=== PATIENT | male | born 1950 | race Caucasian/White ===

== ENCOUNTER 2021-09-04 04:38 | Inpatient (IN) | payer MEDICARE ==
[~2021-09-04] VITALS: Ht 170.2 cm; Wt 86.2 kg
--- NOTE | 2021-09-04 04:45 | NUR ---
Patient BIB [facility] unit [facility] from [facility] Med-Surg floor on a 5150 hold for GD to be medically cleared to be admitted to MHU.
--- NOTE | 2021-09-04 05:00 | NUR ---
Dr. Bell on bedside for MSE.
[2021-09-04] MEDS ORDERED: ENOX40DI SQ (05:02)
[2021-09-04] MEDS ORDERED: LISI-782 PO (05:02)
[2021-09-04] MEDS ORDERED: HALO100A2 IM (05:02)
[2021-09-04] MEDS ORDERED: DIVA500T2 PO (05:02)
[2021-09-04] MEDS ORDERED: BENZ2AMP3 IJ (05:02)
[2021-09-04] MEDS ORDERED: cogentin PO (05:02)
[2021-09-04] MEDS ORDERED: QUET100T PO ×2 (05:02→05:30)
[2021-09-04] MEDS ORDERED: LEVO150T PO (05:02)
[2021-09-04] MEDS ORDERED: LORAZEPAM 0.5 MG TABLET PO ONE (05:15)
[2021-09-04] MEDS ORDERED: OLANZAPINE 5 MG TABLET PO ONE (05:15)
[2021-09-04] MEDS ORDERED: LORAZEPAM 0.5 MG TABLET ONE (05:18)
[2021-09-04] MEDS ORDERED: OLANZAPINE 5 MG TABLET ONE (05:18)
[2021-09-04] MEDS ORDERED: QUET200T PO (05:29)
[2021-09-04] MEDS ORDERED: POLY17PO4 PO (05:29)
[2021-09-04] MEDS ORDERED: NICO-671 TD (05:29)
[2021-09-04] MEDS ORDERED: SENN-261 PO (05:29)
[2021-09-04] MEDS ORDERED: THIA100T74 PO (05:30)
--- NOTE | 2021-09-04 06:39 | NUR ---
Pt. admitted to mhu, under care of Dr. Sheridan and Dr Patton. Report given to DAVID Dawn. Belongs List completed
[2021-09-04] MEDS ORDERED: MAG HYDROX/AL HYDROX/SIMETH 30 ML LIQUID UDC PO PRN (06:45)
[2021-09-04] MEDS ORDERED: BLOOD SUGAR DIAGNOSTIC 1 EACH STRIP VI ONE (06:45)
[2021-09-04] MEDS ORDERED: ACETAMINOPHEN 325 MG TABLET PO PRN (06:45)
[2021-09-04] MEDS ORDERED: MAGNESIUM HYDROXIDE 30 ML LIQUID UDC PO PRN (06:45)
[2021-09-04] MEDS ORDERED: ZOLPIDEM 5 MG TABLET PO PRN (06:45)
[2021-09-04 06:50] VITALS: BP 117/75
--- NOTE | 2021-09-04 07:15 | NUR ---
Admitted at 0650, from the Emergency Room, on a 72 hour hold for gravely disabled, a transfer from [facility]. According to the hold, he is homeless, having previously going AWOL from his prison. He is Developmentally Disabled, with a history of having Schizophrenia, since childhood. He reportedly was delusional, believing gang members were harassing him, and that somebody had stolen his things. Upon arrival on the unit, he was talking to himself, and was oriented to person, only. He was cooperative, but unable to provide any meaningful information. Report was given to oncoming shift, to follow up, with, and complete admission process.
[2021-09-04 08:00] VITALS: BP 117/69
[2021-09-04] MEDS ORDERED: risperiDONE 1 MG TABLET PO SCH (09:00)
[2021-09-04] MEDS: risperiDONE 2 MG TABLET PO SCH ×2 (09:48→16:36)
[2021-09-04] MEDS: NICOTINE 7 MG/24HR PATCH TD SCH (09:48)
--- NOTE | 2021-09-04 12:35 | NUR ---
GPS: Nursing Notes: Thought Disorder: Patient is awake and responding to his name, Eric/Elias, believes it is August 30, 2057, impaired judgment, grandiose, believes that he lives in a mansion, stated "I don't belong here... This is a lie (8264)... I am a millionaire.... I own 3,000 [employer] cars..", poor impulse control, loud and pressured speech at times, encourage to participate in therapeutic groups, unkempt appearance, unable to formulate a viable plan for self care, redirected and reoriented during shift, admitting package and oriented to the unit done early in the am, AWOL risk, denies criss Mason, [facility], "I have my own house..", continue to monitor for safety, continue with treatment plan.
[2021-09-04 16:00] VITALS: BP 133/66
[2021-09-04] MEDS ORDERED: INFLUENZA VACCINE 2021-2022 0.5 ML DISP.SYRIN IM ONE (16:00)
[2021-09-04] MEDS ORDERED: PNEUMOCOCCAL 23-VAL P-SAC VAC 0.5 ML VIAL IM ONE (16:00)
[2021-09-04 20:13] VITALS: BP 126/64
[2021-09-04] MEDS: LORAZEPAM 1 MG TABLET PO PRN (20:53)
[2021-09-04] MEDS ORDERED: TRAZODONE 50 MG TABLET PO SCH (21:00)
[2021-09-04] MEDS: SENNOSIDES 1 TABLET PO SCH (21:18)
[2021-09-05] MEDS: LORAZEPAM 1 MG TABLET PO PRN ×2 (02:59→23:29)
--- NOTE | 2021-09-05 03:57 | NUR ---
Received to care, pleasant upon approach, appearing to be distracted by internal stimuli, hyperverbal, talking to self, exhibiting grandiose thoughts, compliant with medications, pacing the hallway intermittently, but follows redirection. PRN Ativan and Ambien were given before bed. he slept around 2.5 hours since midnight. He wa sobserved talking loudly to self, and pacing intermittently. Another PRN Ativan was given, and he became quieter and calmer, but continues to be awake, and pace intermittently. Currently talking to self, Needs frequent redirection. No distress noted. Monitored closely for safety.
[2021-09-05 07:13] LABS: MEAN CORPUSCULAR HEMOGLOBIN 31.1 uug (23.8-33.4); PLATELET COUNT (AUTO) 179 K/uL (152-348)
[2021-09-05 07:30] VITALS: BP 138/74
[2021-09-05 07:37] LABS: CREATININE 0.7 mg/dL (0.6-1.3); MAGNESIUM 2.2 mg/dL (1.8-2.4); PHOSPHOROUS 3.8 mg/dL (2.5-4.9); POTASSIUM 3.9 mmol/L (3.5-5.1)
[2021-09-05 08:47] LABS: THYROID STIMULATING HORMONE 0.1 mIU/mL (0.358-3.740)
[2021-09-05] MEDS ORDERED: NICOTINE 7 MG/24HR PATCH TD SCH (09:00)
[2021-09-05] MEDS: LISINOPRIL 5 MG TABLET PO SCH (09:46)
[2021-09-05] MEDS: THIAMINE HCL 100 MG TABLET PO SCH (09:49)
[2021-09-05] MEDS: MIRALAX 17 GM POWD.PACK PO SCH (09:50)
[2021-09-05] MEDS: risperiDONE 2 MG TABLET PO SCH ×2 (09:50→17:56)
[2021-09-05] MEDS: NICOTINE 7 MG/24HR PATCH TD SCH (09:50)
[2021-09-05] MEDS: LEVOTHYROXINE SODIUM 150 MCG TABLET PO SCH (09:52)
--- NOTE | 2021-09-05 10:51 | NUR ---
ADRIEN Admit Source: Per 5150 hold, pt was BIB ambulance after found screaming alongside a building. Per pt's sister, Chastity ([phone]), pt does not currently reside at address provided on facesheet. No contact information for pt's prior SNF. Chastity stated pt should discharged to a locked SNF. Chastity will be notified with pt discharge update and questions as needed, however per Chastity, family will not be further involved in continuatin of care for pt. ADRIEN will continue to work with pt, family and MD to ensure a safe and proper discharge plan.
--- NOTE | 2021-09-05 10:51 | NUR ---
ADRIEN Initial Discharge Note: Per pt's sister, Chastity ([phone]), pt does not currently reside at address provided on facesheet. No contact information for pt's prior SNF. Chastity stated pt should discharged to a locked SNF. Chastity will be notified with pt discharge update and questions as needed, however per Chastity, family will not be further involved in continuatin of care for pt. ADRIEN will continue to work with pt, family and MD to ensure a safe and proper discharge plan.
[2021-09-05] MEDS ORDERED: ZOLPIDEM 5 MG TABLET PO PRN (11:00)
[2021-09-05 16:00] VITALS: BP 126/78
[2021-09-05 20:00] VITALS: BP 104/78
[2021-09-05] MEDS: SENNOSIDES 1 TABLET PO SCH (20:42)
[2021-09-05] MEDS: TRAZODONE 100 MG TABLET PO SCH (20:42)
--- NOTE | 2021-09-05 21:30 | NUR ---
Received patient in his room in bed. He is noted sleeping but easily awaken. He is noted A/O x 2. calm and pleasant upon approached. Impaired insight and judgment is noted as to the reason for his admission to MHU. his thoughts are tangental. Patient is reassured for his safety, safety and fall precaution are in place. V/S stable. He was provided with snacks and PO fluids. will continue to monitor.
--- NOTE | 2021-09-05 23:05 | NUR ---
Patient is noted talking to himself while in bed. He has his whole head complete covered with his blue blanket. Will continue to monitor closely.
--- NOTE | 2021-09-05 23:30 | NUR ---
Patient noted talking to himself and restless. Ativan 1mg PO PRN was given. Will continue to monitor.
[2021-09-06] MEDS: LORAZEPAM 1 MG TABLET PO PRN (05:37)
--- NOTE | 2021-09-06 05:37 | NUR ---
patient noted talking to himself. Multiple redirection given but only lasting for 5 min. Ativan 1mg PO PRN given. will continue to monitor.
[2021-09-06 08:08] VITALS: BP 123/72
[2021-09-06] MEDS: NICOTINE 7 MG/24HR PATCH TD SCH (09:13)
[2021-09-06] MEDS: LISINOPRIL 5 MG TABLET PO SCH (09:14)
[2021-09-06] MEDS: THIAMINE HCL 100 MG TABLET PO SCH (09:14)
[2021-09-06] MEDS: risperiDONE 2 MG TABLET PO SCH ×2 (09:15→16:59)
[2021-09-06] MEDS: MIRALAX 17 GM POWD.PACK PO SCH (09:16)
[2021-09-06] MEDS: LEVOTHYROXINE SODIUM 150 MCG TABLET PO SCH (09:17)
--- NOTE | 2021-09-06 17:15 | NUR ---
Received patient sleeping in his room. A/O X 2 to person, place. Pt. is isolative, withdrawn, low energy, fixated on food. Ambulates without assistance. Self care. Continent. Emotional support provided. Fall and safety precautions implemented.
[2021-09-06 19:49] VITALS: BP 116/62
[2021-09-06] MEDS: TRAZODONE 100 MG TABLET PO SCH (20:13)
[2021-09-06] MEDS: SENNOSIDES 1 TABLET PO SCH (20:13)
[2021-09-07 07:30] VITALS: BP 122/69
[2021-09-07] MEDS: THIAMINE HCL 100 MG TABLET PO SCH (09:12)
[2021-09-07] MEDS: risperiDONE 2 MG TABLET PO SCH ×2 (09:13→16:38)
[2021-09-07] MEDS: MIRALAX 17 GM POWD.PACK PO SCH (09:14)
[2021-09-07] MEDS: LEVOTHYROXINE SODIUM 150 MCG TABLET PO SCH (09:14)
[2021-09-07] MEDS: LISINOPRIL 5 MG TABLET PO SCH (09:14)
[2021-09-07] MEDS: NICOTINE 7 MG/24HR PATCH TD SCH (09:14)
--- NOTE | 2021-09-07 15:45 | NUR ---
Received patient sleeping in his room. A/O X 1 -2 to person. Pt. is quiet, confused, disorganized. Compliant with medications. Ambulates without assistance. Self care. Reassurance given. Fall and safety precautions implemented.
[2021-09-07 17:11] VITALS: BP 109/67
[2021-09-07] MEDS: LORAZEPAM 1 MG TABLET PO PRN (19:04)
--- NOTE | 2021-09-07 19:09 | NUR ---
Patient is given Ativan 1 mg for anxiety, will be monitored for effectiveness.
[2021-09-07 20:00] VITALS: BP 114/80
[2021-09-07] MEDS: TRAZODONE 100 MG TABLET PO SCH (20:01)
[2021-09-07] MEDS: SENNOSIDES 1 TABLET PO SCH (20:02)
--- NOTE | 2021-09-08 06:18 | NUR ---
GPS: Remain calm and cooperative with meds and care.took shower this morning. no agitation noted. slept 7.45 hrs through the night. continue plan of care.
[2021-09-08] MEDS: LEVOTHYROXINE SODIUM 150 MCG TABLET PO SCH (06:29)
[2021-09-08 08:41] VITALS: BP 132/74
[2021-09-08] MEDS: MIRALAX 17 GM POWD.PACK PO SCH (08:55)
[2021-09-08] MEDS: NICOTINE 7 MG/24HR PATCH TD SCH (08:55)
[2021-09-08] MEDS: risperiDONE 2 MG TABLET PO SCH ×2 (08:56→16:22)
[2021-09-08] MEDS: THIAMINE HCL 100 MG TABLET PO SCH (08:56)
[2021-09-08] MEDS: LISINOPRIL 5 MG TABLET PO SCH (08:56)
--- NOTE | 2021-09-08 15:11 | NUR ---
GPS: Nursing Notes: Thought Disorder: Patient is awake and responding to his name, compliant with his medications, responding to internal stimuli by talking to unseen others, loud and pressured speech when talking to unseen others, needs prompting to participate in therapeutic groups, poor pulse control at times, but follows directions, unable to formulate a viable plan for self care, gets easily irritable when his demands are not met immediately, continue with treatment plan.
[2021-09-08 16:04] VITALS: BP 119/66
[2021-09-08 20:06] VITALS: BP 117/62
[2021-09-08] MEDS: SENNOSIDES 1 TABLET PO SCH (20:22)
[2021-09-08] MEDS: TRAZODONE 100 MG TABLET PO SCH (20:22)
[2021-09-09 07:36] VITALS: BP 123/70
[2021-09-09] MEDS: NICOTINE 7 MG/24HR PATCH TD SCH (08:52)
[2021-09-09] MEDS: MIRALAX 17 GM POWD.PACK PO SCH (08:53)
[2021-09-09] MEDS: THIAMINE HCL 100 MG TABLET PO SCH (08:53)
[2021-09-09] MEDS: risperiDONE 2 MG TABLET PO SCH ×2 (08:53→16:38)
[2021-09-09] MEDS: LISINOPRIL 5 MG TABLET PO SCH (08:54)
[2021-09-09] MEDS: LEVOTHYROXINE SODIUM 150 MCG TABLET PO SCH (08:56)
--- NOTE | 2021-09-09 11:46 | NUR ---
GPS: Nursing Notes: Thought Disorder: Patient is awake and responding to his name, poor impulse control at times, responding to internal stimuli by shouting to unseen others, stated "I was talking to my brother..", redirected and reoriented during shift, continue to monitor for safety, unable to formulate a viable plan for self care, continue with treatment plan.
[2021-09-09 16:45] VITALS: BP 122/61
[2021-09-09 19:43] VITALS: BP 107/51
[2021-09-09] MEDS: SENNOSIDES 1 TABLET PO SCH (20:56)
[2021-09-09] MEDS: TRAZODONE 100 MG TABLET PO SCH (20:56)
[2021-09-10 08:03] VITALS: BP 112/77
[2021-09-10] MEDS: MIRALAX 17 GM POWD.PACK PO SCH (08:03)
[2021-09-10] MEDS: NICOTINE 7 MG/24HR PATCH TD SCH (08:03)
[2021-09-10] MEDS: THIAMINE HCL 100 MG TABLET PO SCH (08:04)
[2021-09-10] MEDS: risperiDONE 2 MG TABLET PO SCH ×2 (08:04→16:40)
[2021-09-10] MEDS: LEVOTHYROXINE SODIUM 150 MCG TABLET PO SCH (08:04)
[2021-09-10] MEDS: LISINOPRIL 5 MG TABLET PO SCH (08:04)
--- NOTE | 2021-09-10 13:12 | NUR ---
GPS: HEARING DONE. PT ON HOLD FOR GRAVE DISABILITY. PT NOTIFIED.
--- NOTE | 2021-09-10 13:45 | NUR ---
GPS: Nursing Notes: Thought Disorder: Patient is awake and responding to his name, responding to internal stimuli by shouting to unseen others, stated "I am talking to my brother... I am fine..", gets easily anxious when redirected, A/Ox1, redirected and reoriented during shift, unable to formulate a viable plan for self care, following staff directions, continue to monitor for safety, continue with treatment plan.
[2021-09-10 16:54] VITALS: BP 116/72
[2021-09-10 20:13] VITALS: BP 116/71
[2021-09-10] MEDS: DIVALPROEX ER 500 MG TAB.SR.24H PO SCH (20:21)
[2021-09-10] MEDS: TRAZODONE 100 MG TABLET PO SCH (20:21)
[2021-09-10] MEDS: SENNOSIDES 1 TABLET PO SCH (20:22)
[2021-09-11] MEDS: LORAZEPAM 1 MG TABLET PO PRN ×2 (02:40→20:29)
--- NOTE | 2021-09-11 02:42 | NUR ---
A/O X1-2,WOKE UP THEN STARTED TO RESPONDING TO INTERNAL STIMULI BY SHOUTING/LAUGHING AND TALKING TO UNSEEN PERSON INSIDE HIS ROOM.PT STATED,"I'M TALKING TO MY BROTHER,WE'RE HAVING FUN."FREQ. REALITY ORIENTATION AND SETTING LIMITS NEEDED.PRN MED WAS GIVEN FOR A/A WITH PENDING RESULT.WILL CONTINUE TO MONITOR.
[2021-09-11 08:04] VITALS: BP 111/61
[2021-09-11] MEDS: risperiDONE 2 MG TABLET PO SCH ×2 (09:18→16:55)
[2021-09-11] MEDS: NICOTINE 7 MG/24HR PATCH TD SCH (09:18)
[2021-09-11] MEDS: MIRALAX 17 GM POWD.PACK PO SCH (09:18)
[2021-09-11] MEDS: LEVOTHYROXINE SODIUM 150 MCG TABLET PO SCH (09:18)
[2021-09-11] MEDS: LISINOPRIL 5 MG TABLET PO SCH (09:19)
[2021-09-11] MEDS: THIAMINE HCL 100 MG TABLET PO SCH (09:20)
--- NOTE | 2021-09-11 09:23 | NUR ---
Firearms Report: Pairing Machine Operator completed and submitted a [employer] firearms report for 5150 grave disability certifications. A copy of report has been placed in patient chart
--- NOTE | 2021-09-11 15:31 | NUR ---
ADRIEN Coordination of Care: Checking Department Supervisor faxed patient's referral packet including: History and Physical, Consultation, Progress Notes, Medication List and Labs to the following facilities for review and possible prison placement: Katie in admissions for [facility] ([phone]), [facility] ([phone]), [facility] ([phone]) SNF and Board and [employer] Equipment Maintenance Supervisor and [facility] ([phone]).
[2021-09-11 16:30] VITALS: BP 138/66
[2021-09-11 19:52] VITALS: BP 126/58
[2021-09-11] MEDS: DIVALPROEX ER 500 MG TAB.SR.24H PO SCH (20:29)
[2021-09-11] MEDS: TRAZODONE 100 MG TABLET PO SCH (20:29)
[2021-09-11] MEDS: risperiDONE 1 MG TABLET PO SCH (20:29)
[2021-09-11] MEDS: SENNOSIDES 1 TABLET PO SCH (20:29)
--- NOTE | 2021-09-12 03:24 | NUR ---
Receive the patient sleeping and refusing to get up and out of the room for snack or shower. However , this patient was medication compliant. During the night ,the patient did get up , naked and talking to himself. Responding to internal stimuli very loudly in his room, disrupting others. This chart writer was able to redirect and distract the patient easily, for a short time and the patient agreed to put cloths on. Will continue to monitor for safety and to continue with the plan of care.
[2021-09-12] MEDS ORDERED: TEMAZEPAM 15 MG CAPSULE PO PRN (08:15)
[2021-09-12] MEDS: NICOTINE 7 MG/24HR PATCH TD SCH (09:00)
[2021-09-12] MEDS: LISINOPRIL 5 MG TABLET PO SCH (09:00)
[2021-09-12] MEDS: risperiDONE 2 MG TABLET PO SCH ×2 (09:54→17:16)
[2021-09-12] MEDS: THIAMINE HCL 100 MG TABLET PO SCH (09:54)
[2021-09-12] MEDS: LEVOTHYROXINE SODIUM 150 MCG TABLET PO SCH (09:55)
[2021-09-12] MEDS: MIRALAX 17 GM POWD.PACK PO SCH (09:56)
--- NOTE | 2021-09-12 15:30 | NUR ---
Received patient sleeping in his room. A/O X 2 to person. Pt. is irritable, labile, suspicious, yelling at staff this morning, refusing medications at first. Pt. took his medications with lots of prompt. Ambulates without assistance. Requires minimal assistance with ADL. Pt. is encourage to vent feelings and emotions. Fall and safety precautions implemented.
[2021-09-12 16:00] VITALS: BP 140/65
[2021-09-12 20:00] VITALS: BP 120/72
[2021-09-12] MEDS: DIVALPROEX ER 500 MG TAB.SR.24H PO SCH (20:29)
[2021-09-12] MEDS: risperiDONE 1 MG TABLET PO SCH (20:30)
[2021-09-12] MEDS: SENNOSIDES 1 TABLET PO SCH (20:30)
[2021-09-12] MEDS: TRAZODONE 100 MG TABLET PO SCH (20:30)
[2021-09-13] MEDS: LEVOTHYROXINE SODIUM 200 MCG TABLET PO SCH (06:16)
--- NOTE | 2021-09-13 06:33 | NUR ---
GPS: Remain calm and cooperative with meds and care. took shower this morning. no agitation noted. slept 6.30 hrs through the night. continue plan of care.
[2021-09-13] MEDS ORDERED: LEVOTHYROXINE SODIUM 150 MCG TABLET PO SCH ×2 (07:00→09:00)
[2021-09-13 07:30] VITALS: BP 127/69
[2021-09-13] MEDS: NICOTINE 7 MG/24HR PATCH TD SCH (09:00)
[2021-09-13] MEDS: MIRALAX 17 GM POWD.PACK PO SCH (09:19)
[2021-09-13] MEDS: risperiDONE 2 MG TABLET PO SCH ×2 (09:19→16:34)
[2021-09-13] MEDS: LISINOPRIL 5 MG TABLET PO SCH (09:20)
[2021-09-13] MEDS: THIAMINE HCL 100 MG TABLET PO SCH (09:21)
--- NOTE | 2021-09-13 09:33 | NUR ---
Gps/Bean Snapper- Patient was extremely agitated right now, as soon as he took his routine oral medication, patient was yelling and screaming out loud , calling the typewriter assembler" "[place]" , words are un clear, when tried to redirect patient he started to come chasing the typewriter assembler very threatening . Charge Nurse Virginia called Dr Sheridan, was informed of patient's behavior, orders received.
[2021-09-13] MEDS ORDERED: LORAZEPAM 2 MG/1 ML VIAL IM ONE (09:45)
[2021-09-13 16:00] VITALS: BP 113/64
[2021-09-13 20:00] VITALS: BP 121/64
--- NOTE | 2021-09-13 22:00 | NUR ---
Received patient in his room sleeping but easily awaken. He is noted A/O x 1. calm and pleasant upon approached. He is a poor historian. Affect is blunted, mood is labile. he is able to comply with medication regiment, diet and care at this time. V/S are stable. She was given PO fluids and snacks. She is reassure for her safety. safety and fall precaution in place. will continue to monitor.
[2021-09-13] MEDS: DIVALPROEX ER 500 MG TAB.SR.24H PO SCH (22:07)
[2021-09-13] MEDS: risperiDONE 1 MG TABLET PO SCH (22:08)
[2021-09-13] MEDS: TRAZODONE 100 MG TABLET PO SCH (22:08)
[2021-09-13] MEDS: SENNOSIDES 1 TABLET PO SCH (22:08)
--- NOTE | 2021-09-14 05:47 | NUR ---
Patient noted talking to himself, and laughing at times. He required redirection, NO aggressive or combative bx noted at this time, He is complaint with medication regiment diet and care. will continue to monitor.
[2021-09-14] MEDS: LEVOTHYROXINE SODIUM 200 MCG TABLET PO SCH (07:05)
[2021-09-14 07:30] VITALS: BP 113/62
[2021-09-14] MEDS: MIRALAX 17 GM POWD.PACK PO SCH (09:32)
[2021-09-14] MEDS: LISINOPRIL 5 MG TABLET PO SCH (09:33)
[2021-09-14] MEDS: THIAMINE HCL 100 MG TABLET PO SCH (09:33)
[2021-09-14] MEDS: NICOTINE 7 MG/24HR PATCH TD SCH (09:33)
[2021-09-14] MEDS: risperiDONE 2 MG TABLET PO SCH ×2 (09:34→16:41)
[2021-09-14 17:34] VITALS: BP 127/67
[2021-09-14 20:00] VITALS: BP 113/68
[2021-09-14] MEDS: DIVALPROEX ER 500 MG TAB.SR.24H PO SCH (20:32)
[2021-09-14] MEDS: SENNOSIDES 1 TABLET PO SCH (20:32)
[2021-09-14] MEDS: TRAZODONE 50 MG TABLET PO SCH (20:32)
[2021-09-14] MEDS: risperiDONE 1 MG TABLET PO SCH (20:33)
[2021-09-15] MEDS: LEVOTHYROXINE SODIUM 200 MCG TABLET PO SCH (06:04)
[2021-09-15 07:43] VITALS: BP 125/67
[2021-09-15] MEDS: risperiDONE 2 MG TABLET PO SCH ×2 (08:18→16:23)
[2021-09-15] MEDS: NICOTINE 7 MG/24HR PATCH TD SCH (08:18)
[2021-09-15] MEDS: THIAMINE HCL 100 MG TABLET PO SCH (08:18)
[2021-09-15] MEDS: LISINOPRIL 5 MG TABLET PO SCH (08:18)
[2021-09-15] MEDS: MIRALAX 17 GM POWD.PACK PO SCH (08:18)
[2021-09-15 16:24] VITALS: BP 126/63
[2021-09-15 20:00] VITALS: BP 115/56
--- NOTE | 2021-09-15 20:00 | NUR ---
RECEIVED PATIENT IN THE DAY ROOM WATCHING TV. HE IS NOTED A/O X 2. HE IS CALM AND PLEASANT UPON APPROACHED. HIS MOOD IS ELATED, BIG SMILE AND VERY HAPPY. AFFECT IS LABILE. HE IS COOPERATIVE WITH PLAN OF CARE. V/S STABLE. HE WAS GIVEN PO FLUIDS AND SNACKS. PT IS REASSURED FOR HIS SAFETY. SAFETY AND FALL PRECAUTION IN PLACE. WILL CONTINUE TO MONITOR.
[2021-09-15] MEDS: DIVALPROEX ER 500 MG TAB.SR.24H PO SCH (20:37)
[2021-09-15] MEDS: SENNOSIDES 1 TABLET PO SCH (20:37)
[2021-09-15] MEDS: TRAZODONE 50 MG TABLET PO SCH (20:38)
[2021-09-15] MEDS: risperiDONE 1 MG TABLET PO SCH (20:38)
[2021-09-16] MEDS: LEVOTHYROXINE SODIUM 200 MCG TABLET PO SCH (06:30)
[2021-09-16 07:02] LABS: CREATININE 0.9 mg/dL (0.6-1.3); POTASSIUM 4.2 mmol/L (3.5-5.1)
[2021-09-16 07:30] VITALS: BP 115/63
[2021-09-16] MEDS: risperiDONE 2 MG TABLET PO SCH ×2 (08:22→17:02)
[2021-09-16] MEDS: THIAMINE HCL 100 MG TABLET PO SCH (08:23)
[2021-09-16] MEDS: MIRALAX 17 GM POWD.PACK PO SCH (08:24)
[2021-09-16] MEDS: LISINOPRIL 5 MG TABLET PO SCH (08:24)
[2021-09-16] MEDS: NICOTINE 7 MG/24HR PATCH TD SCH (08:24)
--- NOTE | 2021-09-16 15:33 | NUR ---
Received patient awake in the hallway. A/O X 1 -2 to person. Pt. is anxious about being discharged, pacing, restless, cooperative with care, and compliant with medications. Ambulates without assistance. Denies SI/HI AH/VH. Reassurance given. Fall and safety precautions implemented.
[2021-09-16 16:08] VITALS: BP 120/75
[2021-09-16 19:52] VITALS: BP 116/64
[2021-09-16] MEDS: DIVALPROEX ER 500 MG TAB.SR.24H PO SCH (20:58)
[2021-09-16] MEDS: risperiDONE 1 MG TABLET PO SCH (20:59)
[2021-09-16] MEDS: TRAZODONE 50 MG TABLET PO SCH (20:59)
[2021-09-16] MEDS: SENNOSIDES 1 TABLET PO SCH (21:00)
[2021-09-17] MEDS: LEVOTHYROXINE SODIUM 200 MCG TABLET PO SCH (06:09)
--- NOTE | 2021-09-17 06:49 | NUR ---
Patient slept for approx 3 hrs through the night. He came out of the room few time but staff was able to redirect patient back to the room and he was encourage to sleep more. PO PRN meds for insomnia was unable to offer d/t patient came out of the room after 3am. No aggressive or combative bx noted during the shift. however, patient noted talking to himself. will continue to monitor.
[2021-09-17 07:50] VITALS: BP 114/77
[2021-09-17] MEDS: risperiDONE 2 MG TABLET PO SCH ×2 (08:43→17:03)
[2021-09-17] MEDS: LISINOPRIL 5 MG TABLET PO SCH (08:44)
[2021-09-17] MEDS: MIRALAX 17 GM POWD.PACK PO SCH (08:44)
[2021-09-17] MEDS: NICOTINE 7 MG/24HR PATCH TD SCH (08:44)
[2021-09-17] MEDS: THIAMINE HCL 100 MG TABLET PO SCH (08:44)
--- NOTE | 2021-09-17 14:46 | NUR ---
Received patient awake in his room. A/O X 1- 2 to person. Pt. is irritable at times, anxious, labile, confused, disoriented, disorganized, cooperative with care, compliant with medications. Ambulates without assistance. Requires minimal assistance with ADL. Reality orientation provided. Fall and safety precautions implemented.
--- NOTE | 2021-09-17 16:12 | NUR ---
ADRIEN Coordination of Care Update: Katie in admissions for [facility] ([phone]), [facility] ([phone]), [facility] ([phone]) SNF and Board and Solvent Process Extractor Operator and [facility] ([phone]), Jessy in admissions from [facility] ([place], [place]) (pt's previous SNF), and admissions from additional facilities all denied the pt due to pt not having SNF days. ADRIEN contacted pt's last residence awning hanger Olman from his independent living ([phone]) who stated he cannot accept the pt back due to pt's history of aggressive behavior, however Olman will reconsider based on pt's progress overtime.
[2021-09-17 17:56] VITALS: BP 128/80
[2021-09-17 19:45] VITALS: BP 116/76
[2021-09-17] MEDS: TRAZODONE 50 MG TABLET PO SCH (20:24)
[2021-09-17] MEDS: SENNOSIDES 1 TABLET PO SCH (20:24)
[2021-09-17] MEDS: risperiDONE 1 MG TABLET PO SCH (20:25)
[2021-09-17] MEDS: DIVALPROEX ER 500 MG TAB.SR.24H PO SCH (20:27)
[2021-09-18] MEDS: LEVOTHYROXINE SODIUM 200 MCG TABLET PO SCH (06:04)
[2021-09-18] MEDS: LORAZEPAM 1 MG TABLET PO PRN (06:04)
[2021-09-18 07:58] VITALS: BP 123/72
[2021-09-18] MEDS: NICOTINE 7 MG/24HR PATCH TD SCH (09:20)
[2021-09-18] MEDS: risperiDONE 2 MG TABLET PO SCH ×2 (09:20→17:09)
[2021-09-18] MEDS: THIAMINE HCL 100 MG TABLET PO SCH (09:22)
[2021-09-18] MEDS: LISINOPRIL 5 MG TABLET PO SCH (09:22)
[2021-09-18] MEDS: MIRALAX 17 GM POWD.PACK PO SCH (09:22)
[2021-09-18 15:51] VITALS: BP 130/64
[2021-09-18 20:03] VITALS: BP 148/72
[2021-09-18] MEDS: TRAZODONE 50 MG TABLET PO SCH (21:17)
[2021-09-18] MEDS: DIVALPROEX ER 500 MG TAB.SR.24H PO SCH (21:17)
[2021-09-18] MEDS: SENNOSIDES 1 TABLET PO SCH (21:18)
[2021-09-18] MEDS: risperiDONE 1 MG TABLET PO SCH (21:18)
[2021-09-19] MEDS: LORAZEPAM 1 MG TABLET PO PRN (03:48)
--- NOTE | 2021-09-19 04:46 | NUR ---
Received to care, pleasant upon approach, talking to self at times. Highly visible on unit. PRN ativan was given at 0348, for excessive talking in bed. He slept just under 4 hours. He is now in his room, talking to self intermittently. No aggressive behavior noted. Will continue to monitor closely.
[2021-09-19] MEDS: LEVOTHYROXINE SODIUM 200 MCG TABLET PO SCH (06:54)
[2021-09-19 07:30] VITALS: BP 134/73
[2021-09-19] MEDS: MIRALAX 17 GM POWD.PACK PO SCH (10:11)
[2021-09-19] MEDS: LISINOPRIL 5 MG TABLET PO SCH (10:12)
[2021-09-19] MEDS: risperiDONE 2 MG TABLET PO SCH ×2 (10:12→16:25)
[2021-09-19] MEDS: NICOTINE 7 MG/24HR PATCH TD SCH (10:13)
[2021-09-19] MEDS: THIAMINE HCL 100 MG TABLET PO SCH (10:13)
[2021-09-19 16:00] VITALS: BP 132/60
[2021-09-19 20:00] VITALS: BP 115/59
[2021-09-19] MEDS: TRAZODONE 50 MG TABLET PO SCH (21:43)
[2021-09-19] MEDS: SENNOSIDES 1 TABLET PO SCH (21:43)
[2021-09-19] MEDS: DIVALPROEX ER 500 MG TAB.SR.24H PO SCH (21:44)
[2021-09-19] MEDS: risperiDONE 1 MG TABLET PO SCH (21:44)
[2021-09-20 07:30] VITALS: BP 129/72
[2021-09-20] MEDS: THIAMINE HCL 100 MG TABLET PO SCH (08:08)
[2021-09-20] MEDS: risperiDONE 2 MG TABLET PO SCH (08:08)
[2021-09-20] MEDS: NICOTINE 7 MG/24HR PATCH TD SCH (08:08)
[2021-09-20 08:09] VITALS: BP 129/72
[2021-09-20] MEDS: MIRALAX 17 GM POWD.PACK PO SCH (08:09)
[2021-09-20] MEDS: LISINOPRIL 5 MG TABLET PO SCH (08:09)
[2021-09-20] MEDS: LEVOTHYROXINE SODIUM 200 MCG TABLET PO SCH (08:11)
--- NOTE | 2021-09-20 11:17 | NUR ---
ADRIEN Discharge Note: Pt will be discharged to [facility] [address] [place] [address], [facility] via Ambulance transportation at 2PM. ADRIEN spoke with product owner of independent living, Olman ([phone]) who states they are ready to accept the patient today. Mauro stated that if he is unable to provide transportation, he will send a driver/sales workers from his independent living who is aware of pts history to provide transportation who the pt is familiar with. Pt is aware and agreeable with discharge plans. Pt is alert and oriented x1 (name), is unable to plan for self-care at this time; however, is willing to return to independent living. Pt denies any suicidal or homicidal ideation. Pt will follow-up with [facility], Dr. Jus Pineda. Leilani from [facility] ([phone]) provided updated pharmacy information for the pt upon discharge: ) F: ([phone]) Pharmacy Address: [address] [place] [address], [address] [place] [address]. Pt presents with calm mood and congruent affect.
--- NOTE | 2021-09-20 14:00 | NUR ---
Received patient sleeping in his room. A/O X 2 to person, place. Pt. is calm, cooperative with care, compliant with medications. Ambulates independently. Emotional support provided. Fall and safety precautions implemented.
--- NOTE | 2021-09-20 16:00 | NUR ---
Received orders from Dr. Sheridan to discharge this patient today. Pt. is calm, excited to go home, compliant with medications. Denies SI/HI AH/VH. Patient left the unit at 16:00 with Olman from [facility]. Pt. received medical and Psych prescriptions, and belongings were returned to the patient. Pt. was encourage to verbalize concerns.
== END 2021-09-20 16:00 | disposition still patient (30) | DRG 885 ==
LOC: ER 04:46 → GPS 06:28
PROVIDERS: ADMIT Psychiatry & Neurology Psychiatry; ATTEND Student in an Organized Health Care Education/Training Program
DX: F20.0 Paranoid schizophrenia (principal); E03.9 Hypothyroidism, unspecified; Z59.00 Homelessness unspecified; F17.210 Nicotine dependence, cigarettes, uncomplicated; E86.0 Dehydration; I10 Essential (primary) hypertension; Z20.822 Contact with and (suspected) exposure to COVID-19; R79.89 Other specified abnormal findings of blood chemistry; F89 Unspecified disorder of psychological development
CPT/HCPCS: 36415; 80164; 83735; 84100; 84443; 85025; 90686; 90732; A4663; A9150; J2060